=== PATIENT | female | born 1995 | race Caucasian/White ===

== ENCOUNTER 2021-11-01 18:31 | Emergency (ER) | payer MEDICAID ==
[~2021-11-01] VITALS: Ht 165.1 cm; Wt 80.7 kg
[2021-11-01 18:50] VITALS: BP 115/70
--- NOTE | 2021-11-01 19:04 | NUR ---
ermd with pa at bedside for immediate assessment, pt has possible hypema per moshe.
[2021-11-01] MEDS ORDERED: ONDANSETRON 4 MG/2 ML VIAL IVP ONE (19:15)
--- NOTE | 2021-11-01 19:37 | NUR ---
ASSUMED PT CARE, IV LINE STARTED ON RIGHT AC G18, BLOOD SAMPLES COLLECTED AND SENT TO LAB. GIVEN STRICT INSTRUCTION TO NOT TOUCH LEFT EYE AND AVOID STRAINING. PT MOVED TO RADIOLOGY FOR CT FACE AND ORBITS.
[2021-11-01 19:50] LABS: BASOPHILS % (AUTO) 0.2 % (0.0-2.0); EOSINOPHILS % (AUTO) 0.1 % (0.0-4.0); HEMATOCRIT 39.5 % (36-48); HEMOGLOBIN 13.4 g/dL (12.0-16.0); LYMPHOCYTES # (AUTO) 1.6 K/uL (2.5-16.5); LYMPHOCYTES % (AUTO) 13.4 % (20.5-51.1); MEAN CORPUSCULAR HEMOGLOBIN 31 pg (27-31); MEAN CORPUSCULAR HGB CONC 34 g/dL (33-37); MEAN CORPUSCULAR VOLUME 90.9 fL (80-94); MONOCYTES # (AUTO) 0.5 K/uL (0.8-1.0); MONOCYTES % (AUTO) 4.2 % (1.7-9.3); NEUTROPHILS # (AUTO) 9.6 K/uL (1.8-7.7); NEUTROPHILS % (AUTO) 82.1 % (42.2-75.2); PLATELET COUNT (AUTO) 234 K/uL (140-450); RED BLOOD CELL COUNT(AUTO) 4.34 MIL/uL (4.20-5.40); RED CELL DISTRIBUTION WIDTH 13.5 % (11.6-13.7); WHITE BLOOD COUNT (AUTO) 11.7 K/uL (4.8-10.8)
--- NOTE | 2021-11-01 19:50 | NUR ---
this casualty underwriter with patient, informed this casualty underwriter will be calling Sarah Beth VILLEGAS for police report, patient insisted she refused to file police report and requested Rn to not call Sarah Beth VILLEGAS.
--- NOTE | 2021-11-01 20:28 | NUR ---
pregtest done, result negative. Dr. Seals informed of patient's pain. Verbal order of morphine 2mg IVP once.
[2021-11-01 20:30] LABS: ALBUMIN 4.2 g/dL (3.4-5.0); ANION GAP 14.2 (8-16); CARBON DIOXIDE 27.2 mmol/L (21-32); CREATININE 0.7 mg/dL (0.6-1.3); POTASSIUM 3.4 mmol/L (3.5-5.1); TOTAL BILIRUBIN 0.2 mg/dL (0.0-1.0)
[2021-11-01] MEDS ORDERED: MORPHINE SULFATE 2 MG/ML SYR IVP ONE (20:35)
[2021-11-01] MEDS ORDERED: LEVOFLOXACIN 500 MG/D5W PREMIX 100 ML IV ONE (20:40)
--- NOTE | 2021-11-01 21:55 | NUR ---
REPORT CALLED [facility] AND SPOKE WITH RENNY NOVOA.
--- NOTE | 2021-11-01 22:00 | NUR ---
[facility] AT BEDSIDE FOR TRANSPORT
--- NOTE | 2021-11-01 22:06 | NUR ---
PT TRANPORTED TO [facility] AT THIS TIME.
[2021-11-02 02:24] VITALS: BP 119/77
--- NOTE | 2021-11-02 08:50 | NUR ---
LATE ENTRY- LEVAQUIN IV DISCONTINUED AT 2206.
== END 2021-11-01 22:06 | disposition short-term general hospital (02) ==
LOC: MED 18:31
DX: S05.22XA Ocular laceration and rupture with prolapse or loss of intraocular tissue, left eye, initial encounter (principal); H21.02 Hyphema, left eye; Z20.822 Contact with and (suspected) exposure to COVID-19; F12.10 Cannabis abuse, uncomplicated; Y04.8XXA Assault by other bodily force, initial encounter; Y93.89 Activity, other specified; Y92.89 Other specified places as the place of occurrence of the external cause; Y99.8 Other external cause status
CPT/HCPCS: 36415; 70480; 70486; 80053; 81025; 85025; 87426; 90471; 90715; 96365; 96375; 99285; J1956; J2270; J2405